=== PATIENT | male | born 1965 | race Caucasian/White ===

== ENCOUNTER 2020-09-11 08:54 | Inpatient (IN) | payer OTHER ==
[~2020-09-11] VITALS: Ht 175.3 cm; Wt 103.9 kg
[~2020-09-11 08:54] MED LIST: AMARYL4 MG PO; ASPIRIN CHEWABL81 MG PO; BASAGLAR K100 UNIT/1 SQ; CARVEDILOL12.5 MG PO; DOK100 MG PO; FLOMAX 0.4 MG0.4 MG PO; KEPPRA1000 MG PO; LASIX 40 MG TAB40 MG PO; LIPITOR40 MG PO; LISINOPRIL10 MG PO; NORVASC5 MG PO; SENNA8.6 MG PO
[2020-09-11 09:23] LABS: HEMOGLOBIN 9.5 gm/dl (14.0-17.5); RED BLOOD COUNT 3.42 M/UL (4.20-5.50)
[2020-09-11 09:47] LABS: BUN/CREATININE RATIO 19 (0-10)
[2020-09-11] MEDS ORDERED: METOPROLOL SUCC25 MG PO (12:02)
[2020-09-11] MEDS ORDERED: FERROUS SULFAT324 MG PO (12:04)
[2020-09-11] MEDS ORDERED: AMARYL 2MG TABLE2 MG PO (12:12)
[2020-09-11] MEDS ORDERED: SODIUM BICARBO650 M1 PO (12:13)
[2020-09-11] MEDS ORDERED: TRADJENTA5 MG PO (12:14)
[2020-09-11] MEDS ORDERED: VITAMIN C250 M1 PO (12:15)
[2020-09-11] MEDS ORDERED: VITAMIN D21250 MCG PO (12:16)
[2020-09-11] MEDS ORDERED: BASAGLAR K100 UNIT/1 SC (12:18)
[2020-09-12 04:36] LABS: RED BLOOD COUNT 2.91 M/UL (4.20-5.50)
[2020-09-12 12:28] LABS: ACINETOBACTER BAUMANNII Not Detected (Negative); CANDIDA ALBICANS Not Detected (Negative); CANDIDA KRUSEI Not Detected (Negative); CANDIDA TROPICALIS Not Detected (Negative); ENTEROCOCCUS Not Detected (Negative); ESCHERICHIA COLI Not Detected (Negative); HAEMOPHILUS INFLUENZAE Not Detected (Negative); KLEBSIELLA OXYTOCA Not Detected (Negative); KLEBSIELLA PNEUMONIAE Not Detected (Negative); KPC-CARBAPENEM-RESISTANCE GENE Not Detected (Negative); PROTEUS Not Detected (Negative); PSEUDOMONAS AERUGINOSA Not Detected (Negative); SERRATIA MARCESANS Not Detected (Negative); STAPHYLOCOCCUS AUREUS Not Detected (Negative); STREP AGALACTIAE (GROUP B) Not Detected (Negative); STREP PYOGENES (GROUP A) Not Detected (Negative); STREPTOCOCCUS Not Detected (Negative); vanA/B (VANCOMYCIN RESIST GENE Not Detected (Negative)
[2020-09-12 14:55] LABS: STAPHYLOCOCCUS DETECTED (Negative); mecA (METHICILLIN RESIST GENE DETECTED (Negative)
[2020-09-13 04:54] LABS: HEMOGLOBIN 8.1 gm/dl (14.0-17.5); RED BLOOD COUNT 2.93 M/UL (4.20-5.50); WHITE BLOOD COUNT 11.9 K/UL (4.5-11.0)
[2020-09-14 08:37] LABS: HEMOGLOBIN 8.1 gm/dl (14.0-17.5); RED BLOOD COUNT 2.95 M/UL (4.20-5.50); WHITE BLOOD COUNT 10.2 K/UL (4.5-11.0)
[2020-09-15 02:57] LABS: HEMOGLOBIN 8.2 gm/dl (14.0-17.5); RED BLOOD COUNT 3.05 M/UL (4.20-5.50); WHITE BLOOD COUNT 10.4 K/UL (4.5-11.0)
--- NOTE | 2020-09-15 05:01 | NUR ---
NOTIFIED DR REDMAN OF POSITIVE BLOOD CULTURES GROWING GRAM POSITIVE COCCI AND BIOFIRE GROWING STAPH AUREUS. PT RECIEVING VANCOMYCIN AND CEFEPIME. RECIEVED NO NEW ORDERS. WILL CONTINUE TO MONITOR.
[2020-09-16 03:25] LABS: HEMOGLOBIN 7.9 gm/dl (14.0-17.5); RED BLOOD COUNT 2.88 M/UL (4.20-5.50); WHITE BLOOD COUNT 11.3 K/UL (4.5-11.0)
[2020-09-17 11:57] LABS: HEMOGLOBIN 8.4 gm/dl (14.0-17.5); RED BLOOD COUNT 3.07 M/UL (4.20-5.50)
--- NOTE | 2020-09-17 16:33 | NUR ---
1500 Patient upset at this time because [facility]. States he is not going there. Refuses meds at this time. Wants doctor to discharge him. Dr Miller called, informed of patient's refusing meds & requesting to be discharged. He stated patient would have to sign out AMA, he could not discharged him.
--- NOTE | 2020-09-17 19:51 | NUR ---
1700 Patient calmer at this time. Stated he would stay through the weekend & see what his options were next week.
--- NOTE | 2020-09-18 00:43 | NUR ---
DURING ASSESSMENT I EXPLAINED THAT DR. DURAN HAD ORDERED A WOUND VAC TO BE APPLIED. HE SAID HE DIDN'T UNDERSTAND WHAT THAT WAS AND I EXPLAINED HOW IT WORKED AND THE BENEFITS TO HIS WOUND. THE PATIENT TOLD ME NOT TO BOTHER, HE DID NOT WANT IT ON. DURING MED PASS I EXPLAINED THAT I HAD HIS MEDS. HE SAID, "YOU TELL ME WHAT YOU HAVE AND I'LL TELL YOU WHAT I'LL TAKE." PT REFUSED LOVENOX, INSULIN, AND THE LOKELMA MIX. AT THE 2200 ROUNDING I STOPPED IN TO CHECK WITH THE PATIENT, HE SAID "I NEED YOU TO COME IN HERE. THE OTHER NURSE, THE ONE THAT GOT MY VITALS... SHE ASK ME HOW MANY TIMES I'VE PEED AND HOW MANY TIMES I'D POOPED. I TOLD HER IT WASN'T ANY OF HER D BUSINESS." NICELY I EXPLAINED THAT ASKING THE QUESTIONS WAS PART OF HER JOB AND THE INFORMATION WAS RECORDED SO THE DR COULD MONITOR HIS KIDNEY FUNCTION ETC. HE LET ME KNOW IN NO UNCERTAIN TERMS THAT IF THE DR NEEDED TO KNOW, HE COULD COME ASK HIM HIMSELF. HE THEN SAID, I'M LEAVING TOMORROW ANYHOW. AND I SAID WELL UNTIL IN THE MORNING, WE'RE HERE TO TAKE GOOD CARE OF YOU AND MAKE SURE YOU HAVE EVERYTHING YOU NEED. HE SAID, "DON'T BOTHER, NOW GO OUT THE DOOR, VIOLENT CRIMES DETECTIVE THE LIGHT AND LEAVE ME ALONE TO GET SOME SLEEP." I TOLD HIM IF HE NEEDED ANYTHING TO PUSH THE RED BUTTON .
[2020-09-18 04:34] LABS: HEMOGLOBIN 8.5 gm/dl (14.0-17.5); RED BLOOD COUNT 3.12 M/UL (4.20-5.50); WHITE BLOOD COUNT 11.2 K/UL (4.5-11.0)
[2020-09-19 02:59] LABS: HEMOGLOBIN 8.8 gm/dl (14.0-17.5); RED BLOOD COUNT 3.27 M/UL (4.20-5.50); WHITE BLOOD COUNT 10.2 K/UL (4.5-11.0)
[2020-09-20 04:49] LABS: HEMOGLOBIN 8.5 gm/dl (14.0-17.5); RED BLOOD COUNT 3.08 M/UL (4.20-5.50); WHITE BLOOD COUNT 9.8 K/UL (4.5-11.0)
--- NOTE | 2020-09-20 11:58 | NUR ---
patient requested to inform md and wanted to sign ama. notified dr. hsu of the above and patient refusal to correct his blood sugar and dr. hsu seen patient and received order to have patient sign ama form. patient unable to find a ride and decided to stay. notified md and she acknowledged.
[2020-09-21] MEDS ORDERED: BACTRIM DS TAB1 EACH PO (13:28)
--- NOTE | 2020-09-21 14:00 | NUR ---
INSTRUCTED PATIENT HOME HEALTH WILL BE SET UP, PAIN MEDS AT PHARMACY. KEEP FOLLOW UP APPOINTMENT. KEEP DRESSINGS CLEAN AND DRY. VERBALIZED MD'S COMMENT ABOUT SEVERITY OF WOUMDS. PT VERBALIZED UNDERSTANDING. MYESHA FLORES R.N.
--- NOTE | 2020-09-21 15:25 | NUR ---
provided report to gilma harman/[facility].
== END 2020-09-21 16:13 | disposition home health service (06) | DRG 264 ==
LOC: ER1 08:54 → CDU 09:59 → M/S 09:59
PROVIDERS: Emergency Medicine; Internal Medicine; Physician Assistant; ADMIT Internal Medicine
PROC: 0HRLXK3 Replacement of Left Lower Leg Skin with Nonautologous Tissue Substitute, Full Thickness, External Approach (ICD-10-PCS; principal; 2020-09-11)
PROC: 0JBP0ZZ Excision of Left Lower Leg Subcutaneous Tissue and Fascia, Open Approach (ICD-10-PCS; 2020-09-11)
PROC: 0JDR0ZZ Extraction of Left Foot Subcutaneous Tissue and Fascia, Open Approach (ICD-10-PCS; 2020-09-11)
DX: E11.52 Type 2 diabetes mellitus with diabetic peripheral angiopathy with gangrene (principal); I50.23 Acute on chronic systolic (congestive) heart failure; A48.0 Gas gangrene; L03.116 Cellulitis of left lower limb; I13.0 Hypertensive heart and chronic kidney disease with heart failure and stage 1 through stage 4 chronic kidney disease, or unspecified chronic kidney disease; N17.9 Acute kidney failure, unspecified; L97.419 Non-pressure chronic ulcer of right heel and midfoot with unspecified severity; L03.115 Cellulitis of right lower limb; D53.9 Nutritional anemia, unspecified; I25.10 Atherosclerotic heart disease of native coronary artery without angina pectoris; E07.9 Disorder of thyroid, unspecified; G40.909 Epilepsy, unspecified, not intractable, without status epilepticus; N18.30 Chronic kidney disease, stage 3 unspecified; E11.22 Type 2 diabetes mellitus with diabetic chronic kidney disease; E03.9 Hypothyroidism, unspecified; Z20.822 Contact with and (suspected) exposure to COVID-19; I27.20 Pulmonary hypertension, unspecified; Z79.4 Long term (current) use of insulin; Z91.14 Patient's other noncompliance with medication regimen; Z87.891 Personal history of nicotine dependence; Z90.49 Acquired absence of other specified parts of digestive tract; Z83.3 Family history of diabetes mellitus; Z80.9 Family history of malignant neoplasm, unspecified
CPT/HCPCS: ECHO; 36415; 73630; 73700; 73718; 80048; 80053; 80202; 81001; 82550; 82553; 82728; 82962; 83540; 83550; 83605; 83874; 83880; 84100; 84484; 85025; 85652; 86140; 87040; 87070; 87077; 87150; 87186; 87205; 93005; 93306; 93925; 93970; 96365; 97110-GP-CQ; 97116-GP-CQ; 97162; 97166; 97530; 99284; J0692; J1335; J1650; J1940; J2001; J2250; J2405; J2543; J2704; J2795; J3010; J3370; J7030; J7050; J7070; J7120; Q4133; U0002

== ENCOUNTER 2020-10-02 01:55 | Inpatient (IN) | payer OTHER ==
[~2020-10-02] VITALS: Ht 177.8 cm; Wt 117.5 kg
[~2020-10-02 01:55] MED LIST changes: +AMARYL 2MG TABLE2 MG PO; +BACTRIM DS TAB1 EACH PO; +BASAGLAR K100 UNIT/1 SC; +FERROUS SULFAT324 MG PO; +METOPROLOL SUCC25 MG PO; +SODIUM BICARBO650 M1 PO; +TRADJENTA5 MG PO; +VITAMIN C250 M1 PO; +VITAMIN D21250 MCG PO
[2020-10-02 03:03] LABS: HEMOGLOBIN 8.4 gm/dl (14.0-17.5); RED BLOOD COUNT 3.09 M/UL (4.20-5.50); WHITE BLOOD COUNT 9.8 K/UL (4.5-11.0)
[2020-10-02 03:17] LABS: BUN/CREATININE RATIO 17 (0-10)
[2020-10-02] MEDS ORDERED: AMARYL4 MG PO (08:55)
[2020-10-02] MEDS ORDERED: LISINOPRIL10 MG PO (08:58)
[2020-10-02] MEDS ORDERED: A (09:01)
[2020-10-02] MEDS ORDERED: IBUPROFEN200 M1 PO (09:02)
[2020-10-03 04:03] LABS: HEMOGLOBIN 7.6 gm/dl (14.0-17.5); WHITE BLOOD COUNT 8.4 K/UL (4.5-11.0)
[2020-10-03 04:06] LABS: RED BLOOD COUNT 2.77 M/UL (4.20-5.50)
[2020-10-05 03:58] LABS: HEMOGLOBIN 7.7 gm/dl (14.0-17.5); RED BLOOD COUNT 2.83 M/UL (4.20-5.50); WHITE BLOOD COUNT 7.6 K/UL (4.5-11.0)
[2020-10-06 04:37] LABS: HEMOGLOBIN 7.7 gm/dl (14.0-17.5); RED BLOOD COUNT 2.84 M/UL (4.20-5.50); WHITE BLOOD COUNT 7.1 K/UL (4.5-11.0)
--- NOTE | 2020-10-06 12:49 | NUR ---
PATIENT STATED HE WAS TIRED OF WAITING FOR HIS SURGERY AND WAS GOING HOME. PATIENT REFUSED ALL 12 PM/1PM MEDS/ACCUCHECKS. DR. MARS NOTIFIED VIA TELEPHONE OF PATIENTS WISHES TO SIGN OUT AMA. RISK VS BENIFITS EXPLAINED TO PATIENT. PATIENT STATED HE DOESN'T CARE, HE IS GONIG HOME.
--- NOTE | 2020-10-06 15:18 | NUR ---
LATE ENTRY - 1PM OR STAFF NOTIFIED THAT PATIENT STILL WANTS TO SIGN OUT AMA. DR. DURAN IN SURGERY, THEY STATED THEY WILL NOTIFY HIM. PATIENT HAS CONTACTED [facility] PERSONALLY TO TRANSPORT HIM TO HIS HOUSE PER PRIVATE PAY.
== END 2020-10-06 15:52 | disposition left against medical advice (07) | DRG 300 ==
LOC: ER1 01:55 → CDU 05:04 → MED SURG 4 08:33
PROVIDERS: Family Medicine; Internal Medicine; ADMIT Internal Medicine
DX: E11.52 Type 2 diabetes mellitus with diabetic peripheral angiopathy with gangrene (principal); L97.429 Non-pressure chronic ulcer of left heel and midfoot with unspecified severity; L03.116 Cellulitis of left lower limb; L03.115 Cellulitis of right lower limb; I13.0 Hypertensive heart and chronic kidney disease with heart failure and stage 1 through stage 4 chronic kidney disease, or unspecified chronic kidney disease; E87.1 Hypo-osmolality and hyponatremia; I96 Gangrene, not elsewhere classified; N17.9 Acute kidney failure, unspecified; E11.621 Type 2 diabetes mellitus with foot ulcer; I87.8 Other specified disorders of veins; E11.40 Type 2 diabetes mellitus with diabetic neuropathy, unspecified; I25.10 Atherosclerotic heart disease of native coronary artery without angina pectoris; E03.9 Hypothyroidism, unspecified; E66.01 Morbid (severe) obesity due to excess calories; E87.5 Hyperkalemia; D50.9 Iron deficiency anemia, unspecified; I27.20 Pulmonary hypertension, unspecified; E11.22 Type 2 diabetes mellitus with diabetic chronic kidney disease; N18.30 Chronic kidney disease, stage 3 unspecified; I50.9 Heart failure, unspecified; G40.909 Epilepsy, unspecified, not intractable, without status epilepticus; Z91.19 Patient's noncompliance with other medical treatment and regimen; Z68.37 Body mass index [BMI] 37.0-37.9, adult
CPT/HCPCS: 36415; 71045; 73610; 73630; 80048; 80053; 80202; 82436; 82550; 82553; 82570; 82962; 83540; 83550; 83605; 84133; 84156; 84300; 84484; 85025; 85610; 86140; 87040; 93005; 99285; J1644; J1756; J2185; J3370; J7030; J7070

== ENCOUNTER 2020-10-23 01:32 | Inpatient (IN) | payer OTHER ==
[~2020-10-23] VITALS: Ht 177.8 cm; Wt 127.0 kg
[~2020-10-23 01:32] MED LIST changes: +A; +IBUPROFEN200 M1 PO
[2020-10-23 03:55] LABS: HEMOGLOBIN 8.5 gm/dl (14.0-17.5); RED BLOOD COUNT 3.12 M/UL (4.20-5.50); WHITE BLOOD COUNT 14.2 K/UL (4.5-11.0)
[2020-10-24 05:11] LABS: HEMOGLOBIN 7.5 gm/dl (14.0-17.5); WHITE BLOOD COUNT 12.3 K/UL (4.5-11.0)
[2020-10-24 05:12] LABS: RED BLOOD COUNT 2.78 M/UL (4.20-5.50)
[2020-10-26 11:56] LABS: HEMOGLOBIN 7.7 gm/dl (14.0-17.5); RED BLOOD COUNT 2.86 M/UL (4.20-5.50); WHITE BLOOD COUNT 11.6 K/UL (4.5-11.0)
--- NOTE | 2020-10-26 15:51 | NUR ---
[facility] CALLED AND STATES TO CALL BACK TOMORROW OR WHEN PT IS MEDICALLY CLEARED TO START PSYCH EVAL PROCESS.
[2020-10-27 15:44] LABS: HEMOGLOBIN 7.9 gm/dl (14.0-17.5); RED BLOOD COUNT 2.92 M/UL (4.20-5.50); WHITE BLOOD COUNT 10.8 K/UL (4.5-11.0)
--- NOTE | 2020-10-28 11:37 | NUR ---
NEW LAB ORDERS ENTERED PER INSTRUCTION FROM DR. PATIÑO.
[2020-10-28 12:21] LABS: RED BLOOD COUNT 2.98 M/UL (4.20-5.50); WHITE BLOOD COUNT 12.5 K/UL (4.5-11.0)
--- NOTE | 2020-10-29 22:30 | NUR ---
SINCE THE BEGINNING OF THE SHIFT, THE PATIENT WAS IRATE THAT HE HAD A GAURD SITTING OUTSIDE HIS DOOR. HE STATED "I DON'T WANT HIM WATCHING ME TAKE A SHIT". I DISCUSSED WITH THE GAURD THAT THE PATIENT WAS UPSET. HE STATED HE HAD TO WATCH THE PATIENT AT ALL TIMES. PATIENT WANTING A TECH SITTER INSTEAD. PATIENT THREATENING TO PULL HIS IV OUT. DRILLING SUPERVISOR NOTIFIED AND INFORMED THAT THERE WERE NO TECHS AVAILABLE. INFORMED HER OF THE PATIENT'S BEHAVIOR. THE PATIENT REFUSED TO TAKE ANY OF HIS MEDS - IV OR PO. HE ALSO REFUSED TO HAVE HIS BLOOD SUGAR CHECKED. GAURD REMAINS OUTSIDE PATIENT'S ROOM.
--- NOTE | 2020-10-29 23:10 | NUR ---
PATIENT STILL NOT HAPPY THAT HE HAS A GAURD OUTSIDE HIS DOOR. HE IS AWARE WHY THEY HAVE TO BE THERE. CALLED [facility] TO CHECK ON STATUS OF NEEDED EVAL. THEY INFORMED ME THAT HE HAD AN EVAL ARRANGED FOR 10/28/20, BUT IS WAS POSTPONED BECAUSE THE PATIENT WAS S/P OR AND WAS STILL LETHRGIC. INFORMED THAT A NEW REQUEST NEEDED TO BE INITIATED. STEPS COMPLETED FOR NEW EVALUATION. WILL AWAIT CALL FROM [facility].
--- NOTE | 2020-10-30 04:05 | NUR ---
CALL RECEIVED FROM [facility]. CASE REVIEWED. [facility] STATED THAT THEY COULD NOT EVALUATE THE PATIENT AT THIS TIME. THEY NEEDED PATIENT TO BE MEDICALLY CLEAR, MEANING THE PATIENT WOULD BE ABLE TO BE VERIFIABLY DISCHARGED WITHIN THE NEXT 1-2 DAYS. ADVISED TO RESUBMIT A REQUEST FOR ANOTHER EVALUATION AFTER DISCUSSING WITH THE PATIENT'S MEDICAL PROVIDERS. WILL PASS ON TO AM RN. JACINTO REMAINS OUTSIDE PATIENT'S ROOM.
[2020-10-30] MEDS ORDERED: AMLODIPINE BESYL5 MG PO (12:40)
--- NOTE | 2020-10-31 03:15 | NUR ---
ONCE AGAIN, PATIENT HAS REFUSED TO TAKE HIS MEDS BECAUSE THERE IS A GUARD OUTSIDE HIS ROOM. CALL PLACED TO ACCOUNT PLANNER AT 2100 AND INFORMED THERE WAS NO TECH AVAILABLE AT THIS TIME. EXPLAINED TO THE PATIENT THE IMPORTANCE F HIS MEDICATIONS, ESPECIALLY THE IV ANTIBIOTICS THROUGHOUT THE NIGHT SEVERAL TIMES. PATIENT STILL REFUSED.
--- NOTE | 2020-10-31 06:16 | NUR ---
FAX SENT TO [facility] FOR EVALUATION REQUEST.
[2020-10-31 07:20] LABS: HEMOGLOBIN 7.6 gm/dl (14.0-17.5); RED BLOOD COUNT 2.92 M/UL (4.20-5.50); WHITE BLOOD COUNT 10.8 K/UL (4.5-11.0)
--- NOTE | 2020-10-31 23:15 | NUR ---
CALLED TO PATIENT'S ROOM. SITTER STATING THAT HE SAID HE WAS GONNA "TEAR HIS IV OUT". UPON ARRIVAL TO THE ROOM, THE PATIENT'S IV WAS HALF OUT. HE STATED IT WAS BAD. I ADVANCED ANGIOCATH AND FLUSHED AND GOT GOOD BLOOD RETURN. 0 S/S OF INFILTRATION NOTED. PATIENT DEMANDED TO HAVE IV REMOVED. I EDUCATED HIM ON THE IMPORTANCE OF RECEIVING HIS IV ANTX. HE STILL REFUSED AND STARTED TAKING THE TAPE OFF THE IV. AVOIDING BEHAVIOR ESCALATION, I REMOVED THE IV. PATIENT REFUSED RO HAVE ANOTHER IV PLACED. SITTER REMAINS OUTSIDE ROOM.
--- NOTE | 2020-11-02 07:53 | NUR ---
PATIENT FOUND IN CHAIR W/ DRESSING UNWRAPPED FROM LEFT FOOT PATIENT REFUSED FOR ME TO CHANGE THE DRESSING OR REINFORCE. PATIENT ALSO REFUSED ALL OF MEDICATIONS, ACCUCHECK, PSYCH ASSESSMENT AT THIS TIME. WILL NOTIFY MD AND CONTINUE TO MONITOR 1:1 SITTER SUICIDAL PRECAUTIONS IN EFFECT
[2020-11-02 10:01] LABS: HEMOGLOBIN 8.1 gm/dl (14.0-17.5); WHITE BLOOD COUNT 10.5 K/UL (4.5-11.0)
[2020-11-05 08:12] LABS: HEMOGLOBIN 7.4 gm/dl (14.0-17.5); RED BLOOD COUNT 2.82 M/UL (4.20-5.50); WHITE BLOOD COUNT 9.4 K/UL (4.5-11.0)
[2020-11-05] MEDS ORDERED: LOPRESSOR 25 MG25 MG PO (10:35)
[2020-11-05] MEDS ORDERED: ZYVOX600 MG PO (10:35)
[2020-11-05] MEDS ORDERED: LANTUS INS100 UTS/M1 SQ (10:40)
--- NOTE | 2020-11-05 17:27 | NUR ---
[facility] POLICE OFFICERS CAME TO OBTAIN PATIENT FOR COMP CARE EVAL DR NAVARRO HAD NOT SEEN PT SINCE 10/30 PATIENT'S LEGS HAVE PROGRESSIVELY WORSENED IN THE LAST 5 DAYS I HAVE BEEN WITH HIM I CALLED DR NAVARRO AND SHE SAID SHE WOULD BE TO SEE THE PATIENT BY [facility] POLICE OFFICERS CALLED BACK TO COME PICK PATIENT UP AND THEY INFORMED RN THAT PATIENT'S WARRANT WAS SIGNED BY [facility] JUDGE WHICH IS WHERE THE PATIENT RESIDES AND THAT [facility] CAN NOT SERVE A [facility] WARRANT.
--- NOTE | 2020-11-05 17:50 | NUR ---
I was notified of a discharge concern related to Mr. Picekns. The concern involved the serving of the 202A petition to the patient and the [facility] the [facility]. I spoke to the [facility] Sheriff (Duglas Chandler) on two different occasions. He informed me that he did not have jurisdiction in [facility] to serve the 202A paperwork to the patient. He also contacted the [facility] judge who signed the paperwork who supported this decision. He also is under the impression that the 202A paperwork will after 24 hours and then a new 202A process will have to be requested. He suggested contacting the [facility] and executive asst to manage. I explained that the executive asst had refused to sign as the patient was a [facility] resident and we had already attempted this process. I have also spoke to [facility] dispatch on two different occasions and am currently waiting to connect with Mason Rodriguez who is the orange picking supervisor on duty for [facility].
--- NOTE | 2020-11-05 21:48 | NUR ---
Summary note-[facility] Sheriff Norris [facility], Sheriff Norris contacted me back at 6:58pm to report that we would need to initiate paperwork from a [facility] judge. I contacted dispatch and spoke to Mason Teixeira who contacted Captain Berrios who contacted Sheriff Jones to validate this information. Captain Berrios contacted the feed house supervisor and reported the same information. I spoke with the feed house supervisor at 8:09pm to confirm the discussion. I also contacted Leny Gamez to provide an update on required next steps. Plan will be to reinitiate paperwork as soon as a us administrative law judge is available in [facility].
--- NOTE | 2020-11-05 23:44 | NUR ---
@1845 ASSESSED PATIENT AND ASKED TO PUT A NEW IV ACCESS IN TO BE ABLE TO GIVE ANTIBIOTICS AND PATIENT REFUSED TO ALLOW IV ACCESS AND DID NOT WANT ANTIBIOTICS. @2120 ENTERED PT ROOM TO ADMINISTER MEDICATION, PT REFUSED ALL NIGHT TIME MEDICATION EXCEPT FOR KEPPRA WELL REFUSED TO CHECK BLOOD GLUCOSE LEVEL. @5890 NOTIFIED PHYSICIAN THAT PATIENT REFUSED ALL MEDICATION EXCEPT FOR KEPPRA WELL NEW IV ACCCESS FOR ANTIBIOTICS.
[2020-11-07 07:56] LABS: HEMOGLOBIN 7.6 gm/dl (14.0-17.5); RED BLOOD COUNT 2.82 M/UL (4.20-5.50); WHITE BLOOD COUNT 7.9 K/UL (4.5-11.0)
--- NOTE | 2020-11-07 11:48 | NUR ---
MD ORDERED PATIENT TO HAVE IV MEDS FOR CRITICAL POTASSIUM THIS MORNING, PATIENT REFUSED ALL MORNING MEDICATION EXCEPT SEIZURE MEDS AND HUMALOG INSULIN, I EDUCATED THE PATIENT OF THE RISKS OF NOT TAKING MEDICATION AND THE RISKS OF A CRITICAL POTASSIUM AND HE STATED HE "DID NOT WANT MEDS IT WAS HIS CHOICE HE WANTED TO GO HOME" I ASKED HIM IF I COULD START AND IV FOR HIS ANTIBOTICS AND HE TOLD ME NO HE "DID NOT WANT ANY MEDICATIONS OR AN IV". I NOTIFIED THE MD OF HIS DECISIONS. WCROBIN.
--- NOTE | 2020-11-08 00:23 | NUR ---
2200 BP 168/83 PT REFUSED BP MEDS
--- NOTE | 2020-11-08 02:33 | NUR ---
11/07/20 2200 PT REFUSED TO ALLOW ACCUCHECKS TO CHECK HIS BLOOD GLUCOSE LEVELS. STATES "ONLY GIVE ME MY SEIZURE MEDS." WILL NOT ALLOW ME TO PUT IN AN IV AND VITAL SIGNS. EDUCATED PT ON THE NEED FOR HIS MEDICATIONS. PT CONTINUED TO REFUSE.
--- NOTE | 2020-11-08 05:02 | NUR ---
PT HAS REFUSED TO LET US TAKE HIS BP. AT 0500 HE CALLED OUT WITH A HEADACHE, I ASK HIM TO LET ME CHECK HIS BP AND THAT MIGHT BE WHAT'S CAUSING HIS HEADACHE. HE REFUSED AT 2100 TO TAKE HIS BP MED. PT STATED, " I HAVE A BAD EYE ON THE RIGHT SIDE AND IT HURTS THERE SOMETIMES." STILL REFUSED TO LET ME CHECK HIS BP.
[2020-11-08] MEDS ORDERED: CLEOCIN HCL300 MG PO (19:33)
== END 2020-11-08 14:22 | DRG 853 ==
LOC: ER1 01:32 → CDU 03:53 → M/S 03:53
PROVIDERS: Internal Medicine; Physician Assistant; Podiatrist Foot & Ankle Surgery; ADMIT Internal Medicine
PROC: 0HRNXK3 Replacement of Left Foot Skin with Nonautologous Tissue Substitute, Full Thickness, External Approach (ICD-10-PCS; 2020-10-27)
PROC: 0JBR0ZZ Excision of Left Foot Subcutaneous Tissue and Fascia, Open Approach (ICD-10-PCS; principal; 2020-10-27 08:00)
DX: A41.59 Other Gram-negative sepsis (principal); L89.624 Pressure ulcer of left heel, stage 4; N17.9 Acute kidney failure, unspecified; R45.851 Suicidal ideations; I13.0 Hypertensive heart and chronic kidney disease with heart failure and stage 1 through stage 4 chronic kidney disease, or unspecified chronic kidney disease; I50.42 Chronic combined systolic (congestive) and diastolic (congestive) heart failure; Z68.41 Body mass index [BMI] 40.0-44.9, adult; M86.9 Osteomyelitis, unspecified; L03.116 Cellulitis of left lower limb; L03.115 Cellulitis of right lower limb; Z20.822 Contact with and (suspected) exposure to COVID-19; F32.9 Major depressive disorder, single episode, unspecified; D64.9 Anemia, unspecified; E87.5 Hyperkalemia; I87.8 Other specified disorders of veins; Z86.73 Personal history of transient ischemic attack (TIA), and cerebral infarction without residual deficits; E11.22 Type 2 diabetes mellitus with diabetic chronic kidney disease; N18.30 Chronic kidney disease, stage 3 unspecified; I27.20 Pulmonary hypertension, unspecified; I25.10 Atherosclerotic heart disease of native coronary artery without angina pectoris; E03.9 Hypothyroidism, unspecified; E66.9 Obesity, unspecified; I73.9 Peripheral vascular disease, unspecified; E11.621 Type 2 diabetes mellitus with foot ulcer; Z83.3 Family history of diabetes mellitus; Z79.82 Long term (current) use of aspirin; Z79.4 Long term (current) use of insulin; Z98.61 Coronary angioplasty status; Z79.899 Other long term (current) drug therapy; Z82.49 Family history of ischemic heart disease and other diseases of the circulatory system; Z87.891 Personal history of nicotine dependence; Z90.49 Acquired absence of other specified parts of digestive tract; Z91.14 Patient's other noncompliance with medication regimen
CPT/HCPCS: 36415; 70450; 73630; 80048; 80053; 80307; 81001; 82550; 82553; 82962; 83036; 83605; 83735; 83880; 84100; 84439; 84443; 84484; 85025; 85027; 85610; 85652; 85730; 86140; 87040; 87070; 87077; 87186; 87205; 93005; 93925; 96365; 96368; 99284; C9113; J0692; J1170; J1644; J1650; J2001; J2020; J2270; J2405; J2704; J2795; J3370; J7030; J7070; J7120; Q4133; U0002

== ENCOUNTER 2020-11-08 15:35 | Emergency (ER) | payer OTHER ==
[~2020-11-08 15:35] MED LIST changes: +AMLODIPINE BESYL5 MG PO; +LANTUS INS100 UTS/M1 SQ; +LOPRESSOR 25 MG25 MG PO; +ZYVOX600 MG PO
[2020-11-08 18:05] LABS: HEMOGLOBIN 8.5 gm/dl (14.0-17.5); WHITE BLOOD COUNT 9.7 K/UL (4.5-11.0)
[2020-11-08 18:16] LABS: RED BLOOD COUNT 3.14 M/UL (4.20-5.50)
[2020-11-08] MEDS ORDERED: CLEOCIN HCL300 MG PO (19:33)
== END 2020-11-08 21:08 | disposition home or self-care (01) ==
LOC: ER1 15:35
PROVIDERS: Physician Assistant
DX: E11.622 Type 2 diabetes mellitus with other skin ulcer (principal); L98.499 Non-pressure chronic ulcer of skin of other sites with unspecified severity; D64.9 Anemia, unspecified; E87.5 Hyperkalemia; F17.200 Nicotine dependence, unspecified, uncomplicated; G40.909 Epilepsy, unspecified, not intractable, without status epilepticus; Z79.4 Long term (current) use of insulin; I51.9 Heart disease, unspecified
CPT/HCPCS: 73590; 73630; 80053; 83605; 85025; 87040; 93005; 99284

== ENCOUNTER 2020-11-08 23:09 | Emergency (ER) | payer OTHER ==
[~2020-11-08 23:09] MED LIST changes: +CLEOCIN HCL300 MG PO
== END 2020-11-09 06:56 | disposition home or self-care (01) ==
LOC: ER1 23:09
DX: E11.621 Type 2 diabetes mellitus with foot ulcer (principal); L97.529 Non-pressure chronic ulcer of other part of left foot with unspecified severity; L03.116 Cellulitis of left lower limb; I10 Essential (primary) hypertension; Z90.89 Acquired absence of other organs
CPT/HCPCS: 99283

== ENCOUNTER 2020-11-19 17:11 | Inpatient (IN) | payer OTHER ==
[~2020-11-19] VITALS: Ht 177.8 cm; Wt 113.4 kg
[2020-11-19 19:35] LABS: HEMOGLOBIN 7.5 gm/dl (14.0-17.5); RED BLOOD COUNT 2.74 M/UL (4.20-5.50); WHITE BLOOD COUNT 10.6 K/UL (4.5-11.0)
[2020-11-19 19:51] LABS: BUN/CREATININE RATIO 22 (0-10)
[2020-11-20 06:25] LABS: HEMOGLOBIN 7.2 gm/dl (14.0-17.5); RED BLOOD COUNT 2.62 M/UL (4.20-5.50); WHITE BLOOD COUNT 10.4 K/UL (4.5-11.0)
[2020-11-21 05:12] LABS: HEMOGLOBIN 7.3 gm/dl (14.0-17.5); RED BLOOD COUNT 2.69 M/UL (4.20-5.50); WHITE BLOOD COUNT 9.5 K/UL (4.5-11.0)
[2020-11-22 07:44] LABS: HEMOGLOBIN 7.3 gm/dl (14.0-17.5); RED BLOOD COUNT 2.78 M/UL (4.20-5.50)
[2020-11-22 07:47] LABS: WHITE BLOOD COUNT 13.2 K/UL (4.5-11.0)
--- NOTE | 2020-11-22 18:55 | NUR ---
PATIENT HAD HYPOGLYCEMIC EVENT OF 66, WITH RECHECK OF 68. PATIENTS TRAY HAD JUST BEEN DELIVERED. PATIENT ATE AND BLOOD GUCOSE WAS RECHECKED. PATIENTS GLUCOSE WAS STILL ONLY 67. PO GLUCOSE WAS ADMINISTERED AND GLUCOSE RECHECKED ACCORDING TO PROTOCOL AND PATIENTS BLOOD GLUCOSE WAS 104. AT 1700 ACCUCHECK PATIENTS BLOOD GLUCOSE WAS 146 AND TWO UNITS OF INSULIN PER THE SLIDING SCALE.
--- NOTE | 2020-11-23 05:26 | NUR ---
PATIENT REFUSED MOST OF PM MEDS, ALSO REFUSED BLOOD GLUCOSE FINGERSTICK. PATIENT REFUSED LAB, IV MEDS AND VITAL SIGNS, PATIENT STATED HE WANTED TO BE LEFT ALONE BECAUSE HE WAS RESTING GOOD.
[2020-11-23 11:59] LABS: HEMOGLOBIN 8.4 gm/dl (14.0-17.5); RED BLOOD COUNT 3.03 M/UL (4.20-5.50); WHITE BLOOD COUNT 12.1 K/UL (4.5-11.0)
--- NOTE | 2020-11-23 15:13 | NUR ---
PATIENT REFUSES LIQUIDS. GETS ANGRY THAT IV PUMP BEEPS AND NEEDS TO BE RESTARTED IF THERE IS A DISTAL OCCLUSION. IMPPRTANCE OF ANTIBIOTICS AND FLUIDS. WILL CONTINUE TO MONITOR.
[2020-11-24 10:07] LABS: WHITE BLOOD COUNT 11.4 K/UL (4.5-11.0)
[2020-11-24 10:14] LABS: RED BLOOD COUNT 2.5 M/UL (4.20-5.50)
[2020-11-24 10:15] LABS: HEMOGLOBIN 6.6 gm/dl (14.0-17.5)
[2020-11-25 04:25] LABS: WHITE BLOOD COUNT 11.1 K/UL (4.5-11.0)
[2020-11-25 04:47] LABS: HEMOGLOBIN 8.6 gm/dl (14.0-17.5); RED BLOOD COUNT 3.08 M/UL (4.20-5.50)
[2020-11-25 06:11] LABS: CREATININE, URINE 75.7 mg/dL (Not Estab.)
--- NOTE | 2020-11-25 06:31 | NUR ---
UNABLE TO SCAN 0530 MEDICATIONS MIRALAX,KAYEXALATE. COMPUTER SHUT DOWN ONCE LOGGING BACK IN, AND THEN TRYED ANOTHER COMPUTER WELL NOT ABLE TO CHART THEM. THESE MEDICATIONS WERE ADMINSTERED. CALLED IT CUSTOMER SUPPORT SPOKE WITH [employer] TICKET NUMBER [phone]. STATES HE WILL PUT THIS IN URGENT AND IS EFFECTING PT CARE.
[2020-11-26 12:14] LABS: COMPLEMENT C3, SERUM 110 mg/dL (82-167); COMPLEMENT C4, SERUM 21 mg/dL (12-38)
[2020-11-26 14:14] LABS: ANTI-DSDNA ANTIBODIES <1 IU/mL (0-9)
[2020-11-26 16:11] LABS: A/G RATIO 0.7 (0.7-1.7); ALBUMIN 2.2 g/dL (2.9-4.4); ALPHA-1-GLOBULIN 0.4 g/dL (0.0-0.4); ALPHA-2-GLOBULIN 0.8 g/dL (0.4-1.0); BETA GLOBULIN 0.9 g/dL (0.7-1.3); GAMMA GLOBULIN 1.5 g/dL (0.4-1.8); GLOBULIN, TOTAL 3.6 g/dL (2.2-3.9); IMMUNOFIXATION RESULT, SERUM Comment: (.); IMMUNOGLOBULIN A, QN, SERUM 345 mg/dL (90-386); IMMUNOGLOBULIN G, QN, SERUM 1406 mg/dL (603-1613); IMMUNOGLOBULIN M, QN, SERUM 97 mg/dL (20-172); M-SPIKE Not Observed g/dL (Not Observed); PROTEIN, TOTAL, SERUM 5.8 g/dL (6.0-8.5)
[2020-11-27 07:39] LABS: HEMOGLOBIN 8.9 gm/dl (14.0-17.5); RED BLOOD COUNT 3.34 M/UL (4.20-5.50)
[2020-11-28 05:14] LABS: HEMOGLOBIN 8.8 gm/dl (14.0-17.5); RED BLOOD COUNT 3.31 M/UL (4.20-5.50); WHITE BLOOD COUNT 12.3 K/UL (4.5-11.0)
[2020-11-28 20:11] LABS: ANTIMYELOPEROXIDASE (MPO) ABS <9.0 U/mL (0.0-9.0); ANTIPROTEINASE 3 (PR-3) ABS <3.5 U/mL (0.0-3.5); ATYPICAL PANCA <1:20 titer (Neg:<1:20); CYTOPLASMIC (C-ANCA) <1:20 titer (Neg:<1:20); PERINUCLEAR (P-ANCA) <1:20 titer (Neg:<1:20)
[2020-11-30 07:05] LABS: HEMOGLOBIN 8.6 gm/dl (14.0-17.5); RED BLOOD COUNT 3.1 M/UL (4.20-5.50)
--- NOTE | 2020-12-01 06:57 | NUR ---
emptied LIA drain, pt is on a low K+ diet per Dr. Vizcarra.
[2020-12-01 08:35] LABS: HEMOGLOBIN 7.1 gm/dl (14.0-17.5); WHITE BLOOD COUNT 12.2 K/UL (4.5-11.0)
[2020-12-01 08:41] LABS: RED BLOOD COUNT 2.72 M/UL (4.20-5.50)
[2020-12-01 14:07] LABS: HEMOGLOBIN 7.2 gm/dl (14.0-17.5); RED BLOOD COUNT 2.58 M/UL (4.20-5.50); WHITE BLOOD COUNT 12.2 K/UL (4.5-11.0)
[2020-12-02 06:29] LABS: RED BLOOD COUNT 2.54 M/UL (4.20-5.50); WHITE BLOOD COUNT 10.2 K/UL (4.5-11.0)
[2020-12-03 09:18] LABS: HEMOGLOBIN 7.7 gm/dl (14.0-17.5); RED BLOOD COUNT 2.78 M/UL (4.20-5.50); WHITE BLOOD COUNT 8.6 K/UL (4.5-11.0)
--- NOTE | 2020-12-04 14:10 | NUR ---
DR. PITTMAN AWARE OF PATIENT PULLING OUT HIS IV AND REFUSAL TO HAVE ANOTHER IV PLACED. ALSO AWARE OF REFUSED MEDICATIONS AND LAB TESTING.
--- NOTE | 2020-12-05 03:50 | NUR ---
My BRAN MIXER Elias notified me whenever she went to get patient's vitals that the patient's face and top lip looked swollen. Upon assessment of the patient, he did appear to have some facial swelling, his top lip was swelled, and his tongue and throat was swollen. Patient denied any shortness of breath and his oxygen saturation was 93%. I asked the patient if he knew if he was allergic to anything and he stated he had no idea. Patient denied having any food allergies as well. Patient had not been administered any new medications on my shift. I notified Dr. Garcia who ordered benadryl, hydrocortisone, and epinephrine. Administered medications to patient. Patient's oxygen saturation now is 96% and he is still denying any shortness of breath.
[2020-12-05 08:54] LABS: HEMOGLOBIN 7.7 gm/dl (14.0-17.5); RED BLOOD COUNT 2.75 M/UL (4.20-5.50); WHITE BLOOD COUNT 9.4 K/UL (4.5-11.0)
--- NOTE | 2020-12-06 12:56 | NUR ---
Left BKA dressing changed.
[2020-12-07 06:54] LABS: HEMOGLOBIN 6.8 gm/dl (14.0-17.5); RED BLOOD COUNT 2.45 M/UL (4.20-5.50); WHITE BLOOD COUNT 6.9 K/UL (4.5-11.0)
--- NOTE | 2020-12-07 07:02 | NUR ---
Dr. Steiner notified of critical hgb of 6.8. New orders: type and screen for possible transfusion
[2020-12-07 09:58] LABS: HEMOGLOBIN 7.1 gm/dl (14.0-17.5)
--- NOTE | 2020-12-07 21:55 | NUR ---
APPROX. 2155: ENTERED PT'S ROOM TO ADMINISTER NIGHT TIME MEDICATIONS. PT SOUNDED VERY COARSE AND HAD EXPIRATORY CONGESTION PRESENT. PT WOULD COUGH, BUT DID NOT HAVE ANY SECRETIONS COME UP. PT WAS NOT SHOWNG ANY S/S OF DISTRESS. HOWEVER, THIS WAS A TOTAL CHANGE IN COMPARISON TO MY ASSESSMENT AT 1900. NOTIFIED . SEE PROVIDER NOTIFICATIONS FOR DETAILS.
--- NOTE | 2020-12-07 22:20 | NUR ---
NOTIFIED PET SITTER FOR THE NEED OF CONTINUOUS PULSE OX CORD. TECH STATED THAT WE CURRENTLY DID NOT HAVE ANYMORE PULSE OX CORDS, BUT SHE WOULD ADD ME TO THE WAITING LIST.
[2020-12-08 07:21] LABS: RED BLOOD COUNT 2.54 M/UL (4.20-5.50); WHITE BLOOD COUNT 9.8 K/UL (4.5-11.0)
[2020-12-08 07:22] LABS: HEMOGLOBIN 6.8 gm/dl (14.0-17.5)
[2020-12-08 17:02] LABS: HEMOGLOBIN 8.3 gm/dl (14.0-17.5)
[2020-12-09 07:01] LABS: HEMOGLOBIN 7.7 gm/dl (14.0-17.5)
[2020-12-09 07:04] LABS: RED BLOOD COUNT 2.87 M/UL (4.20-5.50)
[2020-12-10 07:22] LABS: HEMOGLOBIN 8.2 gm/dl (14.0-17.5); RED BLOOD COUNT 2.92 M/UL (4.20-5.50); WHITE BLOOD COUNT 8.9 K/UL (4.5-11.0)
[2020-12-11 06:43] LABS: HEMOGLOBIN 8.1 gm/dl (14.0-17.5); RED BLOOD COUNT 2.88 M/UL (4.20-5.50); WHITE BLOOD COUNT 8.4 K/UL (4.5-11.0)
--- NOTE | 2020-12-11 16:42 | NUR ---
PATIENT REFUSED 1700 GLUCOSE CHECK.
[2020-12-12 06:53] LABS: HEMOGLOBIN 8.4 gm/dl (14.0-17.5); RED BLOOD COUNT 3.02 M/UL (4.20-5.50)
[2020-12-12 06:57] LABS: WHITE BLOOD COUNT 12.7 K/UL (4.5-11.0)
[2020-12-13 05:28] LABS: HEMOGLOBIN 8.3 gm/dl (14.0-17.5); RED BLOOD COUNT 2.96 M/UL (4.20-5.50); WHITE BLOOD COUNT 11.2 K/UL (4.5-11.0)
[2020-12-14 06:32] LABS: HEMOGLOBIN 7.5 gm/dl (14.0-17.5); RED BLOOD COUNT 2.71 M/UL (4.20-5.50); WHITE BLOOD COUNT 12.1 K/UL (4.5-11.0)
[2020-12-14] MEDS ORDERED: THERAGRAN M TAB1 EA PO (10:23)
[2020-12-14] MEDS ORDERED: HUMALOG 10100 UNITS/ SC (10:23)
[2020-12-14] MEDS ORDERED: LOPRESSOR 50 MG50 MG PO (10:23)
[2020-12-14] MEDS ORDERED: FERROUS GLUCON324 M1 PO (10:23)
[2020-12-14] MEDS ORDERED: KEPPRA 500 MG500 MG PO (10:23)
[2020-12-14] MEDS ORDERED: IPRAT-ALBUT 0.5-3 ML NEB (10:23)
[2020-12-14] MEDS ORDERED: LANTUS INS100 UTS/M1 SQ (10:23)
[2020-12-14] MEDS ORDERED: BUMETANIDE1 MG PO (10:23)
[2020-12-14] MEDS ORDERED: PROTONIX 40 MG40 M1 PO (10:23)
[2020-12-14] MEDS ORDERED: NYSTOP60 GM TOP (10:23)
[2020-12-14] MEDS ORDERED: DULOXETINE HCL30 MG PO (10:23)
== END 2020-12-14 13:42 | DRG 474 ==
LOC: ER1 17:11 → CDU 23:15 → M/S 23:15
PROVIDERS: Family Medicine; Internal Medicine; Internal Medicine Infectious Disease; Internal Medicine Nephrology; Surgery; ADMIT Internal Medicine
PROC: 0QBH0ZZ Excision of Left Tibia, Open Approach (ICD-10-PCS; 2020-11-20)
PROC: 0QBK0ZZ Excision of Left Fibula, Open Approach (ICD-10-PCS; 2020-11-20)
PROC: 0Y6J0Z1 Detachment at Left Lower Leg, High, Open Approach (ICD-10-PCS; principal; 2020-11-30 07:30)
PROC: 30233N1 Transfusion of Nonautologous Red Blood Cells into Peripheral Vein, Percutaneous Approach (ICD-10-PCS; 2020-12-02)
DX: T87.44 Infection of amputation stump, left lower extremity (principal); I50.23 Acute on chronic systolic (congestive) heart failure; N17.0 Acute kidney failure with tubular necrosis; A41.9 Sepsis, unspecified organism; R65.20 Severe sepsis without septic shock; M86.672 Other chronic osteomyelitis, left ankle and foot; N13.30 Unspecified hydronephrosis; E87.2 Acidosis; I13.0 Hypertensive heart and chronic kidney disease with heart failure and stage 1 through stage 4 chronic kidney disease, or unspecified chronic kidney disease; I50.22 Chronic systolic (congestive) heart failure; I42.0 Dilated cardiomyopathy; D62 Acute posthemorrhagic anemia; Z20.822 Contact with and (suspected) exposure to COVID-19; D50.9 Iron deficiency anemia, unspecified; E11.22 Type 2 diabetes mellitus with diabetic chronic kidney disease; E11.649 Type 2 diabetes mellitus with hypoglycemia without coma; Y83.8 Other surgical procedures as the cause of abnormal reaction of the patient, or of later complication, without mention of misadventure at the time of the procedure; E87.5 Hyperkalemia; D63.1 Anemia in chronic kidney disease; E11.319 Type 2 diabetes mellitus with unspecified diabetic retinopathy without macular edema; G40.909 Epilepsy, unspecified, not intractable, without status epilepticus; E11.40 Type 2 diabetes mellitus with diabetic neuropathy, unspecified; H54.7 Unspecified visual loss; I87.8 Other specified disorders of veins; R44.1 Visual hallucinations; D69.6 Thrombocytopenia, unspecified; E03.9 Hypothyroidism, unspecified; N18.30 Chronic kidney disease, stage 3 unspecified; R53.81 Other malaise; F32.9 Major depressive disorder, single episode, unspecified; L89.629 Pressure ulcer of left heel, unspecified stage; E11.21 Type 2 diabetes mellitus with diabetic nephropathy; Z79.01 Long term (current) use of anticoagulants; Z79.82 Long term (current) use of aspirin; Z86.73 Personal history of transient ischemic attack (TIA), and cerebral infarction without residual deficits; Z91.19 Patient's noncompliance with other medical treatment and regimen; Z90.49 Acquired absence of other specified parts of digestive tract; Z83.3 Family history of diabetes mellitus; Z82.49 Family history of ischemic heart disease and other diseases of the circulatory system; Z91.14 Patient's other noncompliance with medication regimen
CPT/HCPCS: 36415; 36430; 70450; 71045; 73620; 80048; 80053; 80202; 81001; 82043; 82140; 82272; 82550; 82553; 82570; 82607; 82728; 82746; 82784; 82962; 83520; 83540; 83550; 83605; 83735; 83880; 84100; 84155; 84156; 84165; 84484; 84550; 85014; 85018; 85025; 85027; 85610; 86038; 86140; 86160; 86225; 86256; 86334; 86850; 86900; 86901; 86920; 87040; 93005; 94640; 94664; 94760; 97110; 97110-GP-CQ; 97161; 97164; 97166; 97168; 97530; 97530-GP-CQ; 97535; 99284; J0171; J0696; J1100; J1170; J1200; J1650; J1720; J1756; J1940; J2001; J2250; J2270; J2405; J2543; J2704; J2795; J3010; J3370; J7030; J7070; J7120; P9016; P9045; P9047; U0002